=== PATIENT | male | born 1985 | race Caucasian/White ===

== ENCOUNTER 2017-04-24 18:43 | Inpatient (IN) | payer OTHER ==
[~2017-04-24] VITALS: Ht 182.9 cm; Wt 70.3 kg
--- NOTE | ~2017-04-24 | PA ---
Unit #: [id number] #: [id number] Patient: [facility]APIA [id number] [facility] [address] [place] [address] [id number] MR#: [id number] NAME: ARLENE TAPIA ROOM: P266 Age: 31 Sex: M Admission Date: 04/24/2017 : 1985 Date of Assessment: 04/25/2017 Attending Physician: Aniyah Sanchez M.D. Admitting Physician: Aniyah Sanchez M.D. Primary Care Physician: Primary Care Physician No PSYCHIATRIC ASSESSMENT DATE OF SERVICE 04/25/2017. IDENTIFYING DATA Mr. Tapia is a 31-year-old single white male, who is a resident of [place], [place], and is known to us from previous encounter, and was self-referred to the hospital on a voluntary basis. CHIEF COMPLAINT "Suicidal ideation with plan to jump into traffic." HISTORY OF PRESENT ILLNESS Mr. Tapia is a 31-year-old white male with history of mood disorder and substance abuse, who is known to us from previous encounter, was recently active under my care last month in intensive outpatient treatment program, where he was successfully able to complete the program and left the program in a positive note; however, he started re-compensating soon afterwards and now presented reporting suicidal ideation and a plan to jump into traffic and that he is currently suicidal because he is so sad about having a poor social support system and strained relationship with parents and over the drug use and currently unable to find employment and reports that his depressive symptoms has been getting worse and now reports isolation, excessive sleep, feelings of hopelessness and helplessness, and suicidal ideations with intent and plan and was seen to be danger to self and therefore, recommendation for inpatient level of care for safety and stabilization was made and the patient was transferred to us. SUBSTANCE ABUSE HISTORY The patient reports history of opioids and cannabis abuse and reports that he has been snorting pills on daily basis and has been smoking cannabis at least twice a week ago, though he reports opioids to be his drug of choice. PAST PSYCHIATRIC HISTORY The patient has had [facility] of [facility] and review of the medical records indicate that he has been diagnosed and treated for bipolar disorder and supposed to be on a combination of BuSpar, Effexor, and Abilify, but has been poorly compliant with the medication and as such, has not been able to show a therapeutic response to medications. PAST MEDICAL HISTORY The patient's medical history is significant for chronic migraine Unit #: [id number] #: [id number] Patient: ARLENE TAPIA headaches. ALLERGIES No known medication allergies. PERSONAL AND SOCIAL HISTORY A 31-year-old white male, who reports that he is single, unemployed, and essentially homeless and has poor social support system. MENTAL STATUS EXAMINATION Young white male who was casually dressed with fair personal hygiene, appears to be in no acute distress or discomfort. He was awake and alert on interaction with intact orientation to time, place, and person. His mood was anxious and depressed with a congruent affect. His speech was slow and restricted in content. His thought processes were disorganized with some looseness of associations and suicidal ideations. His insight and judgment remain significantly impaired. DIAGNOSTIC IMPRESSION Psychiatric: Bipolar disorder, most recent episode depressed, recurrent, moderate, without psychotic features; opioid dependence, moderate; cannabis abuse, moderate. Medical: Chronic migraine headaches. Stressors: Moderate psychosocial stressors. TREATMENT PLAN 1. The patient has presented with history of mood disorder, and has been decompensating and will need inpatient hospitalization for safety and stabilization. We will start him back on his home medications. We will adjust the medications and monitor response. 2. Supportive therapy was provided to the patient. 3. Safe, structured, and nourishing environment will be provided. ESTIMATED LENGTH OF STAY 5 to 7 days. ABILITY TO HELP SELF Limited. WILLINGNESS TO HELP SELF The patient appears to be willing to help self. STRENGTHS 1. Communicative. 2. Cooperative. PROBLEMS 1. Chronic dysphoric symptoms. 2. Chronic chemical dependency. 3. Poor social support system. DISCHARGE CRITERIA This will be contingent upon the patient's ability to show resolution of his depression and anxiety and his ability to stay safe to himself and others, particularly after discharge from the hospital. Dictated by... Unit #: [id number] #: [id number] Patient: ARLENE TAPIA Davie Yan/diana TD: 04/25/2017 23:25 JOB #: [id number] PSYCHIATRIC ASSESSMENT Page 1 of 1 X Aniyah Sanchez MD PSYCHIATRIC ASSESSMENT
--- NOTE | ~2017-04-24 | DS ---
Unit #: [id number] #: [id number] Patient: ARLENE TAPIA [id number] [facility] [address] [place] [address] [id number] MR#: [id number] NAME: ARLENE TAPIA. ROOM: 66 Age: 31 Sex: M Admission Date: 04/24/2017 : 1985 Discharge Date: 04/29/2017 Attending Physician: Aniyah Sanchez M.D. Primary Care Physician: Primary Care Physician No DISCHARGE SUMMARY IDENTIFYING DATA Mr. Tapia is a 31-year-old single white male who is a resident of [place], [place] and is known to us from previous encounter, was self-referred to the hospital. DISCHARGE DIAGNOSES Psychiatric: Bipolar disorder, most recent episode depressed, recurrent, moderate, without psychotic features; opioid dependence, moderate; cannabis abuse, moderate. Medical: Migraine headaches. Stressors: Moderate psychosocial stressors. HISTORY OF PRESENT ILLNESS Please see initial psychiatric evaluation for details. PAST PSYCHIATRIC HISTORY Please see initial psychiatric evaluation for details. PAST MEDICAL HISTORY Please see initial psychiatric evaluation for details. HOSPITAL COURSE The patient was [facility] and was oriented to the hospital environment. Routine p.r.n. medications were initiated, and he was started back on his home medications and medications were adjusted and he was closely monitored. He was taking the medications regularly and he was tolerating them fairly well and was able to show a decent therapeutic response with improvement in depression and anxiety and as such, it was decided that he will be discharged home and will continue treatment on an outpatient basis. DISCHARGE MEDICATIONS Abilify 10 mg a day for depression and Effexor XR 150 mg a day for depression. DISCHARGE CONDITION Stable. PROGNOSIS Fair. Dictated by... Aniyah Sanchez M.D. Unit #: [id number] #: [id number] Patient: ARLENE TAPIA IAA/modl TD: 04/30/2017 11:11 JOB #: [id number] DISCHARGE SUMMARY Page 1 of 1 X Aniyah Sanchez MD X DISCHARGE SUMMARY
--- NOTE | ~2017-04-24 | HP ---
Unit #: [id number] #: [id number] Patient: ARLENE LAYNE [id number] [place] [address] [id number] MR#: [id number] NAME: ARLENE LAYNE ROOM: 66 Age: 31 Sex: M Admission Date: 04/24/2017 : 1985 Attending Physician: Aniyah Sanchez M.D. Admitting Physician: Aniyah Sanchez M.D. Primary Care Physician: Primary Care Physician No HISTORY AND PHYSICAL HISTORY OF PRESENT ILLNESS Arlene is a 31 year old admitted to [address] [place] [address] with depression verbalizing wanting to hurt himself. He has had other admissions to this facility. PAST MEDICAL HISTORY 1. Long history of opioid abuse to include IV heroin. He denies anything currently. 2. History of migraines. PAST SURGICAL HISTORY Nothing reported. ALLERGIES No known drug allergies. SOCIAL HISTORY Smokes one pack per day. Denies alcohol. Admits to a history of opioid abuse to include IV heroin. FAMILY HISTORY Medically noncontributory. REVIEW OF SYSTEMS CONSTITUTIONAL: No fever or chills. HEENT: Denies any sore throat, ear pain or runny nose. CARDIOVASCULAR: Denies chest pain, irregular heart rhythm or palpitations. CHEST: Denies shortness of breath or cough. No hemoptysis. GASTROINTESTINAL: Denies nausea, vomiting, diarrhea or chronic constipation. ENDOCRINE: Denies history of increased thirst or urination. No recent significant weight loss or gain. GENITOURINARY: Denies dysuria, frequency, or hematuria. SKIN: Denies any rashes. HEMATOLOGIC: Denies history of increased bleeding or bruising. MUSCULOSKELETAL: Denies any hot, swollen joints. No generalized muscle pain. NEUROLOGIC: Denies problems with vision or speech. No frequent, severe headaches. No numbness, tingling or weakness in any extremities. Denies loss of bladder or bowel control. CURRENT MEDICATIONS 1. Milk of Magnesia p.r.n. Unit #: [id number] #: [id number] Patient: ARLENE LAYNE 2. Maalox p.r.n. 3. Tylenol p.r.n. 4. Topamax 100 mg q.h.s. 5. Nicotine patch 14 mg daily 6. VESIcare 5 mg q.a.m. 7. Flonase nasal spray q day 8. Abilify 10 mg q.a.m. 9. Neurontin 400 mg t.i.d. 10. Effexor XR 150 mg b.i.d. 11. BuSpar 10 mg b.i.d. PHYSICAL EXAMINATION GENERAL: Alert, well-nourished, in no apparent distress. VITAL SIGNS: Blood pressure 124/84, heart rate 80, respirations 16, temperature 98.6. WEIGHT: 155 pounds. HEIGHT: 6'0". SKIN: Warm and dry without rash or lesion. HEENT: Normocephalic. TMs not viewed. Oral and nasal passages clear. Conjunctivae clear. Pupils equal, round and reactive to light and accommodation. Extraocular movements intact. NECK: Supple without lymphadenopathy or thyromegaly. HEART: Regular rate and rhythm without murmur. LUNGS: Clear. ABDOMEN: Soft, nontender. : Not done. EXTREMITIES: No evidence of cyanosis, clubbing or edema. Moves all extremities without focal deficit. NEUROLOGICAL: Grossly within normal limits. Cranial Nerves: II: Visual frausto are intact. III, IV AND : Extraocular movements are intact. Pupils are equal, round and reactive to light. V: Facial sensation is grossly normal. VII: Facial movements and expression are normal. VIII: Auditory acuity grossly intact. IX, X: Uvula is midline. Phonation is normal. XI: Patient shrugs shoulders and turns head normally. XII: Tongue protrudes in the midline. Sensory and Motor Function: Sensory and motor sensation is grossly normal. Motor: moves all extremities well. Coordination: Gait is normal. Deep Tendon Reflexes: Intact. IMPRESSION Psychiatric admission RECOMMENDATIONS PSYCHIATRIC: Per psychiatrist. MEDICAL: I see no contraindications to participating in facility's activities. MEDICAL PROGNOSIS Good. MEDICAL CONDITION Stable. Unit #: [id number] #: [id number] Patient: ARLENE LAYNE Dictated by... Reina Jones P.A.-C. for Davie Dickens/micaela TD: 04/26/2017 04:33 JOB #: [id number] HISTORY AND PHYSICAL Page 1 of 1 X Reina Jones HISTORY AND PHYSICAL
--- NOTE | ~2017-04-24 | PN ---
Unit #: [id number] #: [id number] Patient: ARLENE TAPIA [id number] [facility] [address] [place] [address] [id number] MR#: [id number] NAME: ARLENE TAPIA. ROOM: [facility] Age: 31 Sex: M Admission Date: 04/24/2017 : 1985 Attending Physician: Aniyah Sanchez M.D. Admitting Physician: Aniyah Sanchez M.D. Primary Care Physician: Primary Care Physician Esperanza SALINAS PROGRESS NOTES DATE 04/27/2017 DISCUSSION Mr. Tapia is a 31-year-old white male who was seen today and chart was reviewed and case was discussed with the staff. He has been anxious, withdrawn and rather seclusive to himself. Meanwhile, he has been cooperative with treatment recommendations and has been taking the medications and tolerating them fairly well with no reported side effects. MENTAL STATUS EXAMINATION Young white male who was casually dressed with fair personal hygiene and appears to be in no acute distress or discomfort. He was awake and alert on interaction with intact orientation. His mood was anxious with congruent affect. He denies any suicidal or homicidal ideation. His insight and judgement remains slightly impaired. TREATMENT PLAN 1. Will continue on his current treatment protocol. Will monitor his response to medications and make further adjustments as needed. 2. Will continue to follow up. Dictated by... Aniyah Sanchez M.D. IAA/rajanh TD: 04/27/2017 22:37 JOB #: [id number] Unit #: [id number] #: [id number] Patient: ARLENE TAPIA RITA PROGRESS NOTES Page 1 of 1 X Aniyah Sanchez MD PROGRESS NOTE
--- NOTE | ~2017-04-24 | PN ---
Unit #: [id number] #: [id number] Patient: ARLENE TAPIA [id number] [facility] [address] [place] [address] [id number] I MR#: [id number] NAME: ARLENE TAPIA. ROOM: [facility] Age: 31 Sex: M Admission Date: 04/24/2017 : 1985 Attending Physician: Aniyah Sanchez M.D. Admitting Physician: Aniyah Sanchez M.D. Primary Care Physician: Primary Care Physician Esperanza SALINAS PROGRESS NOTES DATE 04/28/2017 DISCUSSION Mr. Tapia is a 31-year-old white male who was seen today and chart was reviewed and case was discussed with the staff. He has been doing fairly well and has been showing improvement in his depression and anxiety. Meanwhile, he has been cooperative with treatment recommendations and has been taking medications and tolerating them fairly well with no reported side effects. MENTAL STATUS EXAMINATION Young white male who was casually dressed with fair personal hygiene and appears to be in no acute distress or discomfort. He was awake and alert on interaction with intact orientation. His mood was anxious with congruent affect. He denies any suicidal or homicidal ideation. His insight and judgement remains slightly impaired. TREATMENT PLAN 1. Will continue on his current medications and treatment protocol. Will monitor his response to the medications and make further adjustments as needed. 2. Will continue to follow up. Dictated by... Aniyah Sanchez M.D. IAA/shanti TD: 04/28/2017 17:17 JOB #: [id number] Unit #: [id number] #: [id number] Patient: ARLENE TAPIA RITA PROGRESS NOTES Page 1 of 1 X Aniyah Sanchez MD PROGRESS NOTE
--- NOTE | ~2017-04-24 | PN ---
Unit #: [id number] #: [id number] Patient: ARLENE TAPIA [id number] [facility] [address] [place] [address] [id number] MR#: [id number] NAME: ARLENE TAIPA ROOM: [facility] Age: 31 Sex: M Admission Date: 04/24/2017 : 1985 Attending Physician: Aniyah Sanchez M.D. Admitting Physician: Aniyah Sanchez M.D. Primary Care Physician: Primary Care Physician Esperanza ORTIZ NOTES DATE April 26, 2017 DISCUSSION Mr. Tapia is a 31-year-old white male, who was seen today and chart was reviewed and the case was discussed with the staff. He has been anxious, withdrawn, but has not shown any agitation, irritability, and has been calm and cooperative with the treatment recommendations. He has been exhibiting some persistent depressive symptoms, and has been expressing feelings of hopelessness. Meanwhile, he has been taking the medications and tolerating them fairly well with no reported side effects. MENTAL STATUS EXAMINATION Young white male, who was casually dressed with fair personal hygiene and appears to be in no acute distress or discomfort. He was awake and alert on interaction with intact orientation. His mood is anxious with a congruent affect. He denies any suicidal or homicidal ideations, and also denies any auditory or visual hallucinations. His insight and judgment remain slightly impaired. TREATMENT PLAN 1. We will continue him on his current medications and treatment protocol, and will monitor his response to the medications, and make further adjustments as needed. 2. We will continue to followup. Dictated by... Davie Yan/enmanuel TD: 04/26/2017 12:26 JOB #: [id number] Unit #: [id number] #: [id number] Patient: ARLENE TAPIA RITA ORTIZ NOTES Page 1 of 1 X Aniyah Sanchez MD PROGRESS NOTE
[~2017-04-24 18:43] MED LIST: PEN-VEE K PO; ULTRAM PO
[2017-04-25 10:17] LABS: AMPHETAMINE NEG (NEG); BARBITURATES NEG (NEG); BENZODIAZEPINES NEG (NEG); COCAINE NEG (NEG); MARIJUANA POS (NEG); OPIATES NEG (NEG); TRICYCLIC ANTIDEPRESSANTS NEG (NEG); U METHADONE NEG (NEG)
== END 2017-04-29 13:00 | disposition home or self-care (01) | DRG 885 ==
LOC: P2L 20:41 → POF 23:36 → P2L 23:37
PROVIDERS: Psychiatry & Neurology Psychiatry
DX: F31.32 Bipolar disorder, current episode depressed, moderate (principal); F11.20 Opioid dependence, uncomplicated; F12.10 Cannabis abuse, uncomplicated; G43.909 Migraine, unspecified, not intractable, without status migrainosus
CPT/HCPCS: 80307